=== PATIENT | female | born 1995 | race American Indian/Alaskan Native ===

== ENCOUNTER 2017-10-21 11:26 | Emergency (ER) | payer SELFPAY ==
--- NOTE | 2017-10-21 14:11 | Emergency Department Report ---
Blank Doc - Documentation Documentation: Patient complains of substernal chest pain 2 days. Patient denies anything we can better or worse. Patient denies being on control and denies shortness of breath. Patient has no cardiac risk factors. On exam tender to palpation of anterior chest wall. Patient denies recent travel or exogenous estrogen use. Care will be transferred to [facility].
[2017-10-21 14:26] LABS: Basophils # (Auto) 0.1 K/mm3 (0.0-0.1); Basophils % (Auto) 0.9 % (0.0-1.8); Eosinophils % (Auto) 0.4 % (0.0-4.3); Hematocrit 40.5 % (30.3-42.9); Hemoglobin 13.7 gm/dl (10.1-14.3); Lymphocytes # (Auto) 2.3 K/mm3 (1.2-5.4); Lymphocytes % (Auto) 32.7 % (13.4-35.0); Mean Corpuscular HGB Conc 34 % (30-34); Mean Corpuscular Hemoglobin 27 pg (28-32); Mean Corpuscular Volume 81 fl (79-97); Monocytes # (Auto) 0.5 K/mm3 (0.0-0.8); Monocytes % (Auto) 7.8 % (0.0-7.3); Platelet Count 242 K/mm3 (140-440); Red Blood Count 5.03 M/mm3 (3.65-5.03); Red Cell Distribution Width 13.9 % (13.2-15.2)
[2017-10-21 14:47] LABS: Alanine Aminotransferase 7 units/L (7-56); Albumin 4.2 g/dL (3.9-5); BUN/Creatinine Ratio 22; Blood Urea Nitrogen 13 mg/dL (7-17); Calcium 9.1 mg/dL (8.4-10.2); Hemolysis Index 15
--- NOTE | 2017-10-21 15:22 | XRay Report ---
Single view chest: History: Chest pain. Findings: Heart size is upper limit of normal. Trachea is midline. No consolidation, pneumothorax or pleural effusion. Impression: No definite acute cardiopulmonary findings.
--- NOTE | 2017-10-21 15:48 | Emergency Department Report ---
HPI - General Chief Complaint: Dyspnea/Respdistress Time Seen by Provider: 10/21/17 13:53 - HPI HPI: Patient is a 32-year-old female with no known medical history who presents to ED complaining of midsternal chest pain for the past 3 days. Patient states pain is intermittent, nonradiating, 4-10 intensity. Patient states she has not pain in the injuries sustained in the falls or head trauma recently. She denies having a history of asthma, fever, chills, nausea, vomiting, shortness of breath, history of GERD ED Past Medical Hx - Past Medical History Previous Medical History?: No - Surgical History Past Surgical History?: No - Social History Smoking Status: Current Some Day Smoker Substance Use Type: None - Medications Home Medications: Home Medications Medication Instructions Recorded Confirmed Last Taken Type Ibuprofen [Motrin] 600 mg PO Q8H PRN #30 tablet 10/21/17 Unknown Rx ED Review of Systems ROS: Stated complaint: CHEST PAIN Other details as noted in HPI Constitutional: denies: chills, fever Eyes: denies: eye pain, eye discharge, vision change ENT: denies: ear pain, throat pain, dental pain, congestion Respiratory: denies: cough, shortness of breath, wheezing Cardiovascular: chest pain (mid sternal). denies: palpitations Endocrine: no symptoms reported Gastrointestinal: denies: abdominal pain, nausea, diarrhea Genitourinary: denies: urgency, dysuria, discharge Musculoskeletal: denies: back pain, joint swelling, arthralgia Skin: denies: rash, lesions Neurological: denies: headache, weakness, paresthesias Psychiatric: denies: anxiety, depression Hematological/Lymphatic: denies: easy bleeding, easy bruising Physical Exam - Physical Exam Vital Signs: Vital Signs 10/21/17 10/21/17 12:33 14:31 Temperature 98.6 F Pulse Rate 60 Respiratory 22 16 Rate Blood Pressure 132/73 O2 Sat by Pulse 100 Oximetry Physical Exam: GENERAL: Alert and oriented x3, no apparent distress, Normal Gait, atraumatic. HEAD: Head is normocephalic and a-traumatic. NECK: Supple. Non edematous, No lymphadenopathy or thyromegaly. No C-spine tenderness, full range of motion LUNGS: Symetrical with respiration, No wheezing, no rales or crackles, CTAB. HEART: S1, S2 present, regular rate and rhythm without murmur, no rubs, no gallops. Non tender to palpation BACK: Full range of motion, no spinal tenderness, EXTREMITIES/MUSCULOSKELETAL: No cyanosis, clubbing, rash, lesions or edema. Full ROM bilaterally. UE/LE Pulses 2+ bilaterally. LE and UE 5+ strength bilaterally, NEUROLOGIC: The patient is cooperative with no focal neurologic deficits. SKIN: Warm and dry, No lesions, No ulceration or induration present. ED Course Vital Signs 10/21/17 10/21/17 12:33 14:31 Temperature 98.6 F Pulse Rate 60 Respiratory 22 16 Rate Blood Pressure 132/73 O2 Sat by Pulse 100 Oximetry ED Medical Decision Making - Lab Data Result diagrams: 10/21/17 14:12 10/21/17 14:12 - EKG Data EKG shows normal: sinus rhythm Rate: normal - EKG Data Interpretation: no acute changes - Radiology Data Radiology results: report reviewed, image reviewed Ordering Physician: DELORES SHEPPARD MD Date of Service: 10/21/17 Procedure(s): XR chest 1V ap Accession Number(s): [id number] cc: DELORES SHEPPARD MD Fluoro Time In Minutes: Single view chest: History: Chest pain. Findings: Heart size is upper limit of normal. Trachea is midline. No consolidation, pneumothorax or pleural effusion. Impression: No definite acute cardiopulmonary findings. Transcribed By: PTP Dictated By: RUDY MCCAIN MD Electronically Authenticated By: RUDY MCCAIN MD Signed Date/Time: 10/21/17 1501 - Medical Decision Making 22-year-old female presents with costochondral chest pain ED course: CBC, CMP, troponin, chest x-ray and EKG were completed. All test were negative Discussed this findings with the patient. Discussed with patient to follow up with primary care physician. Discussed the patient take Motrin as needed for pain Discussed the patient to return to ED if any new symptoms. Vital signs are normalized patient is in no acute distress or respiratory distress. Patient states understanding instructions and will comply. Critical care attestation.: If time is entered above; I have spent that time in minutes in the direct care of this critically ill patient, excluding procedure time. ED Disposition Clinical Impression: Atypical chest pain, Costochondral chest pain, Myalgia Disposition: TO HOME OR SELFCARE Is pt being admited?: No Does the pt Need Aspirin: No Condition: Stable Instructions: Chest Pain (ED), Costochondritis (ED), Musculoskeletal Pain (ED) Additional Instructions: Make sure to follow up with the primary care physician as discussed. Take all your medications as you've been prescribed. If you have any worsening symptoms or develop new symptoms please return to ED immediately. Prescriptions: Ibuprofen [Motrin] 600 mg PO Q8H PRN #30 tablet PRN Reason: Pain Referrals: PRIMARY CARE, [Primary Care Provider] - 3-5 Days [facility] [Outside] - 3-5 Days [facility] [Outside] - 3-5 Days [facility] [Outside] - 3-5 Days Forms: Work/School Release Form(ED) Time of Disposition: 16:57
[2017-10-21 16:40] VITALS: BP 109/64
== END 2017-10-21 17:30 | disposition home or self-care (01) ==
LOC: ED 11:26
DX: M94.0 Chondrocostal junction syndrome [Tietze] (principal); M79.1 Myalgia; F17.200 Nicotine dependence, unspecified, uncomplicated; K21.9 Gastro-esophageal reflux disease without esophagitis
CPT/HCPCS: 36415; 71045; 80053; 84484; 84703; 85025; 93005; 93010; 99284